=== PATIENT | female | born 1990 | race Caucasian/White ===

== ENCOUNTER 2018-08-14 19:18 | Inpatient (IN) | payer MEDICAID ==
[~2018-08-14] VITALS: Ht 154.9 cm; Wt 61.0 kg
[~2018-08-14 19:18] MED LIST: ETOMIDATE 2MG/ML 10ML VIAL IV ONE; SUCCINYLCHOLINE CHLORIDE 200MG/10ML IV ONE
[2018-08-14] MEDS ORDERED: METHYLPREDNISOLONE SOD SUCC 125 MG/2 ML VIAL IV STA (19:30)
[2018-08-14] MEDS ORDERED: ALBUTEROL (0.083%) 2.5MG/3ML NEB HHN STA (19:30)
[2018-08-14] MEDS ORDERED: ETOMIDATE 2MG/ML 10ML VIAL IV ONE (19:30)
[2018-08-14] MEDS ORDERED: SUCCINYLCHOLINE CHLORIDE 200MG/10ML IV ONE (19:30)
[2018-08-14] MEDS ORDERED: IPRATROPIUM BROMIDE (0.02%) 0.5MG/2.5ML NEB HHN STA (19:30)
[2018-08-14] MEDS ORDERED: SODIUM CHLORIDE 0.9% 1000ML BAG (SEPSIS BOLUS) IV ONE (19:30)
[2018-08-14] MEDS ORDERED: MAGNESIUM 2 G PREMIX 50 ML IV ONE ×2 (19:30→19:36)
[2018-08-14] MEDS ORDERED: SODIUM CHLORIDE 0.9% 100 ML IV ONE (19:30)
[2018-08-14] MEDS ORDERED: MIDAZOLAM HCL 2 MG/2 ML VIAL IV ONE (19:45)
[2018-08-14] MEDS ORDERED: MIDAZOLAM HCL 2 MG/2 ML VIAL ONE ×2 (19:46→20:03)
[2018-08-14] MEDS: PROPOFOL 10MG/ML 100ML 100 ML IV SCH (20:00)
[2018-08-14 20:34] LABS: HCG SCREEN NEGATIVE
[2018-08-14 20:39] LABS: BG BASE EXCESS -7.5 mmol/L (-2.0-2.0); BG DEOXYHEMOGLOBIN 0.5 % (0.0-5.0); BG FRACTION INSPIRED OXYGEN 100; BG HCO3 ACT 20.9 mmol/L (22.0-26.0); BG METHEMOGLOBIN 0.2 % (0.0-1.5); BG OXYGEN SATURATION 99.5 % (92.0-98.5); BG OXYHEMOGLOBIN 99.3 % (94.0-97.0); BG PCO2 54.9 mmHg (35.0-45.0); BG PH 7.198 (7.350-7.450); BG PO2 565.6 mmHg (75.0-100.0); BG SAMPLE SITE LEFT BRACHIAL; BG TIDAL VOLUME(mL) 550 mL; BG TOTAL HEMOGLOBIN 12.7 g/dL (12.0-18.0); BG VENT MODE VENT - A/C; BG VENT RATE 12 set
[2018-08-14] MEDS ORDERED: ALBUTEROL (0.083%) 2.5MG/3ML NEB HHN ONE (21:00)
[2018-08-14] MEDS ORDERED: IPRATROPIUM BROMIDE (0.02%) 0.5MG/2.5ML NEB HHN ONE (21:00)
[2018-08-14 21:23] LABS: CLARITY URINE CLEAR (CLEAR); COLOR URINE YELLOW (YELLOW); KETONES URINE TRACE (NEGATIVE); LEUKOCYTE ESTERASE URINE NEGATIVE (NEGATIVE); NITRITE URINE NEGATIVE (NEGATIVE); OCCULT BLOOD URINE NEGATIVE (NEGATIVE); PH URINE 5.5 (4.5-8.0); PROTEIN URINE 1+ (NEGATIVE); SPECIFIC GRAVITY URINE 1.016 (1.005-1.030); UROBILINOGEN URINE 0.2 E.U./dL (0.2-1.0)
[2018-08-14 22:53] LABS: HEMATOCRIT. 40.7 % (36.0-48.0); HEMOGLOBIN. 13.7 g/dL (12.0-16.0); MEAN CORPUSCULAR HEMOGLOBIN 31.7 pg (28.0-32.0); MEAN CORPUSCULAR VOLUME 94.1 fL (81.0-99.0); MEAN PLATELET VOLUME 8.6 fl (7.4-10.4); PLATELET 211 x1000/uL (130-400); RED BLOOD CELL COUNT 4.33 mill/uL (4.2-5.4); RED CELL DISTRIBUTION WIDTH 12.7 % (11.6-14.6)
[2018-08-14 22:58] LABS: INR 1.1; PARTIAL THROMBOPLASTIN TIME 27.7 sec (23.4-31.0); PROTHROMBIN TIME 11.3 sec (9.1-11.1)
[2018-08-14 23:15] LABS: PLATELET ESTIMATE NORMAL
[2018-08-15] VITALS (15 sets, daily range): BP systolic 120–133; BP diastolic 60–87
[2018-08-15] MEDS ORDERED: CLONIDINE 0.1MG TABLET PO PRN (00:15)
[2018-08-15] MEDS ORDERED: ACETAMINOPHEN 650MG SUPP PR PRN (00:15)
[2018-08-15] MEDS ORDERED: ONDANSETRON HCL 4MG/2ML INJ IV PRN (00:15)
[2018-08-15] MEDS ORDERED: DOCUSATE SODIUM 100MG CAPSULE PO PRN (00:15)
[2018-08-15] MEDS ORDERED: HYDROCODONE/ACETAMINOPHEN 5/325MG TABLET PO PRN (00:15)
[2018-08-15] MEDS: PROPOFOL 10MG/ML 100ML 100 ML IV SCH ×3 (01:08→11:55)
[2018-08-15] MEDS: DEXT 5%/0.45% NACL 1000ML 1,000 ML IV SCH ×2 (06:44→16:00)
[2018-08-15] MEDS ORDERED: FENTANYL CITRATE/PF 500 MCG in SODIUM CHLORIDE 0.9% 40 ML IV PRN ×2 (07:30→10:30)
[2018-08-15] MEDS ORDERED: IPRATROPIUM/ALBUTEROL 0.5-3(2.5)MG/3ML NEB HHN PRN (07:30)
[2018-08-15 08:18] LABS: BG BASE EXCESS -2.2 mmol/L (-2.0-2.0); BG CARBOXYHEMOGLOBIN 0.6 % (0.5-1.5); BG DEOXYHEMOGLOBIN 0.5 % (0.0-5.0); BG HCO3 ACT 22.3 mmol/L (22.0-26.0); BG METHEMOGLOBIN 0.3 % (0.0-1.5); BG OXYGEN SATURATION 99.5 % (92.0-98.5); BG OXYHEMOGLOBIN 98.6 % (94.0-97.0); BG PCO2 37.7 mmHg (35.0-45.0); BG PO2 301.8 mmHg (75.0-100.0); BG SAMPLE SITE RIGHT RADIAL; BG TIDAL VOLUME(mL) 450 mL; BG TOTAL HEMOGLOBIN 13.2 g/dL (12.0-18.0); BG VENT MODE VENT - A/C; BG VENT RATE 10 set
[2018-08-15 10:28] LABS: CHLORIDE 110 mEq/L (98-107)
[2018-08-15 10:34] LABS: PHOSPHORUS 1.1 mg/dL (2.5-4.9)
[2018-08-15] MEDS ORDERED: METHYLPREDNISOLONE SOD SUCC 40 MG/ML VIAL IV NR (13:30)
[2018-08-15] MEDS ORDERED: SODIUM PHOS,M-BASIC-D-BASIC 20 MM in DEXT 5% WATER 243.3333 ML IV NR (13:30)
[2018-08-15] MEDS: IPRATROPIUM/ALBUTEROL 0.5-3(2.5)MG/3ML NEB HHN SCH ×2 (16:25→21:01)
[2018-08-15] MEDS: MONTELUKAST SODIUM 10MG TABLET PO SCH (16:49)
[2018-08-15] MEDS: PROPOFOL 10MG/ML 100ML 100 ML IV PRN (16:58)
[2018-08-15] MEDS ORDERED: LEVOFLOXACIN 500MG PREMIX 100 ML IV SCH (17:00)
[2018-08-15] MEDS: ENOXAPARIN 40MG/0.4ML SYR SUBCUT SCH (17:02)
[2018-08-15] MEDS: LORATADINE 10MG TABLET PO SCH (17:02)
[2018-08-15] MEDS: FAMOTIDINE 20MG/2ML VIAL IV SCH (20:59)
[2018-08-15] MEDS: METHYLPREDNISOLONE SOD SUCC 40 MG/ML VIAL IV SCH (20:59)
[2018-08-16] VITALS (14 sets, daily range): BP systolic 115–130; BP diastolic 65–84
[2018-08-16] MEDS: IPRATROPIUM/ALBUTEROL 0.5-3(2.5)MG/3ML NEB HHN SCH ×6 (00:55→20:01)
[2018-08-16] MEDS: METHYLPREDNISOLONE SOD SUCC 40 MG/ML VIAL IV SCH ×3 (05:09→21:30)
[2018-08-16] MEDS: DEXT 5%/0.45% NACL 1000ML 1,000 ML IV SCH ×3 (05:09→23:14)
[2018-08-16] MEDS: PROPOFOL 10MG/ML 100ML 100 ML IV PRN (05:10)
[2018-08-16 07:26] LABS: CHLORIDE 109 mEq/L (98-107)
[2018-08-16 08:07] LABS: HEMATOCRIT 38.9 % (36.0-48.0); HEMOGLOBIN 13.2 g/dL (12.0-16.0); MEAN CORPUSCULAR HEMOGLOBIN 32.3 pg (28.0-32.0); MEAN CORPUSCULAR VOLUME 95.2 fL (81.0-99.0); PLATELET 209 x1000/uL (130-400); RED BLOOD CELL COUNT 4.09 mill/uL (4.2-5.4); RED CELL DISTRIBUTION WIDTH 13.5 % (11.6-14.6)
[2018-08-16 08:59] LABS: BG BASE EXCESS 3.4 mmol/L (-2.0-2.0); BG CARBOXYHEMOGLOBIN 0.3 % (0.5-1.5); BG DEOXYHEMOGLOBIN 1.3 % (0.0-5.0); BG FRACTION INSPIRED OXYGEN 40; BG HCO3 ACT 27.1 mmol/L (22.0-26.0); BG METHEMOGLOBIN 0.5 % (0.0-1.5); BG OXYGEN SATURATION 98.7 % (92.0-98.5); BG OXYHEMOGLOBIN 97.9 % (94.0-97.0); BG PCO2 37.8 mmHg (35.0-45.0); BG PH 7.473 (7.350-7.450); BG PO2 169.1 mmHg (75.0-100.0); BG SAMPLE SITE RIGHT RADIAL; BG TIDAL VOLUME(mL) 450 mL; BG TOTAL HEMOGLOBIN 13.3 g/dL (12.0-18.0); BG VENT MODE VENT - A/C; BG VENT RATE 10 set
[2018-08-16] MEDS: FAMOTIDINE 20MG/2ML VIAL IV SCH ×2 (09:00→21:30)
[2018-08-16] MEDS: AMLODIPINE 10MG TABLET PO SCH (09:00)
[2018-08-16] MEDS: LORATADINE 10MG TABLET PO SCH (09:01)
[2018-08-16 12:45] LABS: BG BASE EXCESS 2.2 mmol/L (-2.0-2.0); BG CARBOXYHEMOGLOBIN 0.6 % (0.5-1.5); BG DEOXYHEMOGLOBIN 2.1 % (0.0-5.0); BG FRACTION INSPIRED OXYGEN 30; BG HCO3 ACT 26.3 mmol/L (22.0-26.0); BG METHEMOGLOBIN 0.1 % (0.0-1.5); BG OXYGEN SATURATION 97.9 % (92.0-98.5); BG OXYHEMOGLOBIN 97.2 % (94.0-97.0); BG PCO2 39.2 mmHg (35.0-45.0); BG PH 7.444 (7.350-7.450); BG PO2 107.5 mmHg (75.0-100.0); BG PRESSURE SUPPORT 8; BG SAMPLE SITE LEFT RADIAL; BG TOTAL HEMOGLOBIN 14.2 g/dL (12.0-18.0); BG VENT MODE VENT - CPAP
[2018-08-16] MEDS: ENOXAPARIN 40MG/0.4ML SYR SUBCUT SCH (17:01)
[2018-08-16] MEDS: MONTELUKAST SODIUM 10MG TABLET PO SCH (17:06)
[2018-08-16] MEDS: LEVOFLOXACIN 500MG PREMIX 100 ML IV SCH (18:27)
[2018-08-17] VITALS (18 sets, daily range): BP systolic 97–123; BP diastolic 43–78
[2018-08-17] MEDS: IPRATROPIUM/ALBUTEROL 0.5-3(2.5)MG/3ML NEB HHN SCH ×6 (04:36→22:31)
[2018-08-17] MEDS: METHYLPREDNISOLONE SOD SUCC 40 MG/ML VIAL IV SCH ×2 (05:47→17:50)
[2018-08-17] MEDS: AMLODIPINE 10MG TABLET PO SCH (08:17)
[2018-08-17] MEDS: FAMOTIDINE 20MG/2ML VIAL IV SCH ×2 (08:17→21:08)
[2018-08-17] MEDS: LORATADINE 10MG TABLET PO SCH (08:17)
[2018-08-17] MEDS: ENOXAPARIN 40MG/0.4ML SYR SUBCUT SCH ×2 (16:00→16:28)
[2018-08-17] MEDS: MONTELUKAST SODIUM 10MG TABLET PO SCH (16:28)
[2018-08-17] MEDS ORDERED: ACETAMINOPHEN 325MG TABLET PO PRN (16:45)
[2018-08-17] MEDS: LEVOFLOXACIN 500MG PREMIX 100 ML IV SCH (17:50)
[2018-08-18] VITALS (10 sets, daily range): BP systolic 96–124; BP diastolic 52–69
[2018-08-18] MEDS: IPRATROPIUM/ALBUTEROL 0.5-3(2.5)MG/3ML NEB HHN SCH ×5 (00:40→11:37)
[2018-08-18] MEDS: METHYLPREDNISOLONE SOD SUCC 40 MG/ML VIAL IV SCH (05:53)
[2018-08-18] MEDS: AMLODIPINE 10MG TABLET PO SCH ×2 (09:00→09:31)
[2018-08-18] MEDS: LORATADINE 10MG TABLET PO SCH (09:31)
[2018-08-18] MEDS: FAMOTIDINE 20MG/2ML VIAL IV SCH (09:31)
== END 2018-08-18 14:30 | disposition home or self-care (01) | DRG 133 ==
LOC: ER 19:18 → CVICU 19:45 → EDBEDREQ 19:46 → SUPCPDRO 08-15 00:01 → ENRESERV 08-15 13:19 → CANRESERV 08-15 13:19 → ENRESERV 08-15 13:54 → 3WST 08-17 02:23
PROVIDERS: ADMIT Hospitalist; ATTEND Hospitalist
PROC: 5A1945Z Respiratory Ventilation, 24-96 Consecutive Hours (ICD-10-PCS; principal; 2018-08-14)
PROC: 0BH17EZ Insertion of Endotracheal Airway into Trachea, Via Natural or Artificial Opening (ICD-10-PCS; 2018-08-14)
DX: J96.02 Acute respiratory failure with hypercapnia (principal); E87.4 Mixed disorder of acid-base balance; Z99.81 Dependence on supplemental oxygen; J45.901 Unspecified asthma with (acute) exacerbation
CPT/HCPCS: 31500; 36415; 36600; 71045; 82375; 82805; 82962; 83605; 83735; 84100; 84478; 84703; 85027; 87070; 87804; 92610; 93306; 93970; 94002; 94003; 94640; 96365; 96375; 99291; 99292; J0330; J1650; J1956; J2250; J2704; J2920; J2930; J3010; J3475; J3490; J7030; J7050; J7060; J7611; J7620